=== PATIENT | male | born 1960 | race Caucasian/White ===

== ENCOUNTER 2021-11-05 19:51 | Emergency (ER) | payer OTHER ==
[~2021-11-05] VITALS: Ht 180.3 cm; Wt 97.1 kg
--- NOTE | 2021-11-05 21:20 | NUR ---
BIBSELF C/O RIGHT HAND/THUMB PAIN S/P FOREIGN OBJECT WHILE WORKING ON SATURDAY. ALERT AND ORIENTED X4 BREATHING EVEN AND UNLABORED. ALL V/S STABLE.
--- NOTE | 2021-11-05 22:09 | NUR ---
DR. ROSE AT PT'S BEDSIDE.
[2021-11-05] MEDS ORDERED: LIDOCAINE 2% 20 ML MDV ONE (22:14)
[2021-11-05] MEDS ORDERED: IBUPROFEN 600 MG TABLET PO ONE (22:30)
[2021-11-05] MEDS ORDERED: LIDOCAINE 0.5% HCL 50 ML VIAL IJ ONE (22:30)
[2021-11-05] MEDS ORDERED: IBUPROFEN 600 MG TABLET ONE (22:34)
[2021-11-05] MEDS ORDERED: CEPH500C2 PO (22:48)
[2021-11-05] MEDS ORDERED: IBUP-1953 PO (22:48)
--- NOTE | 2021-11-05 23:20 | NUR ---
Patient discharged to home in stable condition. Written and verbal after care instructions given. Patient verbalizes understanding of instruction. PT ambulatory with a steady gait
[2021-11-05 23:22] VITALS: BP 149/66
== END 2021-11-05 23:22 | disposition home or self-care (01) ==
LOC: ER 19:58
DX: L02.512 Cutaneous abscess of left hand (principal); F17.200 Nicotine dependence, unspecified, uncomplicated; Z91.013 Allergy to seafood; Z79.1 Long term (current) use of non-steroidal anti-inflammatories (NSAID); Z79.899 Other long term (current) drug therapy; Z60.2 Problems related to living alone
CPT/HCPCS: 99283; J3490